=== PATIENT | male | born 1960 | race Caucasian/White ===

== ENCOUNTER 2016-10-08 22:00 | Emergency (ER) | payer MEDICARE, MEDICAID ==
[~2016-10-08] VITALS: Ht 172.7 cm; Wt 108.9 kg
[~2016-10-08 22:00] MED LIST: CLIN1CAP4 PO; ESOM40CA39; FURO40TA PO; LEVO25TA6; SIMBALTA
[2016-10-08 22:33] LABS: Urine RBC None Seen /hpf (0 - 3)
[2016-10-08 22:35] LABS: Basophils # (auto) 0 uL; Basophils % (auto) 0.4 % (0.0-2.0); Eosinophils # (auto) 0.3 uL; Eosinophils % (auto) 2.4 % (0.0-7.0); Hematocrit 42.9 % (41.0-53.0); Hemoglobin 14.3 g/dL (13.5-17.5); Lymphocytes # (auto) 3.3 uL; Lymphocytes % (auto) 28.6 % (10.0-50.0); Mean Corpuscular Hemoglobin 30.4 pg (28.0-32.0); Mean Corpuscular Hgb Conc. 33.3 g/dL (32.0-36.0); Mean Corpuscular Volume 91.2 fL (80.0-100.0); Mean Platelet Volume 7.4 fL (7.4-10.4); Monocytes # (auto) 0.9 uL; Monocytes % (auto) 7.4 % (0.0-12.0); Neutrophils # (auto) 7.1 uL; Neutrophils % (auto) 61.2 % (37.0-80.0); Platelet Count (auto) 264 10^3/uL (140-450); Red Cell Distribution Width 13.6 % (11.6-16.0); White Blood Cell 11.6 10^3/uL (4.4-10.8)
[2016-10-08 22:54] LABS: Albumin 2.9 g/dL (3.4-5.0); Calcium 8.6 mg/dL (8.5-10.1); Magnesium 1.8 mg/dL (1.6-2.6); Potassium 4.3 mmol/L (3.5-5.1)
[2016-10-08 22:57] LABS: BUN/Creatinine Ratio 15.7; Bilirubin, Total 0.3 mg/dL (0.2-1.0); Total Protein 7.2 g/dL (6.4-8.2)
[2016-10-08 22:59] LABS: INR 0.99 (0.9-1.15); Prothrombin Time 10.7 sec (9.37-12.3)
[2016-10-08 23:15] LABS: Urine Bilirubin Negative (Negative); Urine Blood Negative /uL (Negative); Urine Color Colorless (Yellow); Urine Nitrite Negative (Negative); Urine Urobilinogen Normal (Negative); Urine pH 5.5 (5.0-8.0)
[2016-10-08 23:16] LABS: Urine Glucose 4+ mg/dL (Normal); Urine Ketone 1+ (Negative)
[2016-10-08] MEDS ORDERED: SODIUM CHLORIDE 0.9% 1,000 ML IVB ONE (23:37)
[2016-10-09 00:09] LABS: Amylase 32 U/L (25-115)
[2016-10-09] MEDS ORDERED: SODIUM CHLORIDE 0.9% 1,000 ML IV ONE (03:00)
[2016-10-09] MEDS ORDERED: InsuLIN REG 1unit/0.01ml Soln (100units/ml) SC ONE (03:00)
[2016-10-09 03:37] VITALS: BP 138/76
== END 2016-10-09 03:38 | disposition home or self-care (01) ==
LOC: ER 22:20
DX: E10.65 Type 1 diabetes mellitus with hyperglycemia (principal); I25.10 Atherosclerotic heart disease of native coronary artery without angina pectoris; J44.9 Chronic obstructive pulmonary disease, unspecified; K21.9 Gastro-esophageal reflux disease without esophagitis; E78.5 Hyperlipidemia, unspecified; I10 Essential (primary) hypertension; I25.2 Old myocardial infarction; Z86.73 Personal history of transient ischemic attack (TIA), and cerebral infarction without residual deficits; Z79.4 Long term (current) use of insulin
CPT/HCPCS: 36415; 36600; 71010; 80053; 81001; 82010; 82150; 82805; 82962; 83036; 83690; 83735; 85025; 85610; 85730; 96360; 96361; 96372; 99285; J1815

== ENCOUNTER 2017-08-19 09:35 | Emergency (ER) | payer MEDICARE, MEDICAID ==
[~2017-08-19] VITALS: Ht 180.3 cm; Wt 108.9 kg
[~2017-08-19 09:35] MED LIST changes: +CLOP75TA41 PO; +DULO1CAP3 PO; +INSUINJ3; +LEVO75TA6 PO; +MOME1SPR2
[2017-08-19 09:52] VITALS: BP 111/77
[2017-08-19] MEDS ORDERED: methylPREDNISolone SOD SUCC 125 MG/2 ML VL IM ONE (12:15)
== END 2017-08-19 12:50 | disposition home or self-care (01) ==
LOC: ER 09:35
DX: J20.9 Acute bronchitis, unspecified (principal); J44.9 Chronic obstructive pulmonary disease, unspecified; E11.9 Type 2 diabetes mellitus without complications; K21.9 Gastro-esophageal reflux disease without esophagitis; E78.5 Hyperlipidemia, unspecified; I10 Essential (primary) hypertension; I25.2 Old myocardial infarction; E07.9 Disorder of thyroid, unspecified; Z86.73 Personal history of transient ischemic attack (TIA), and cerebral infarction without residual deficits; I25.10 Atherosclerotic heart disease of native coronary artery without angina pectoris
CPT/HCPCS: 71046; 96372; 99284; J2930

== ENCOUNTER 2017-10-18 19:31 | Inpatient (IN) | payer MEDICARE, MEDICAID ==
[~2017-10-18] VITALS: Ht 185.4 cm; Wt 99.8 kg
[2017-10-18 20:14] LABS: Basophils # (auto) 0.1 uL; Basophils % (auto) 0.7 % (0.0-2.0); Eosinophils # (auto) 0.3 uL; Eosinophils % (auto) 3.1 % (0.0-7.0); Hematocrit 47.7 % (41.0-53.0); Hemoglobin 16.5 g/dL (13.5-17.5); Lymphocytes % (auto) 44.8 % (10.0-50.0); Mean Corpuscular Hemoglobin 31.3 pg (28.0-32.0); Mean Corpuscular Hgb Conc. 34.5 g/dL (32.0-36.0); Mean Corpuscular Volume 90.7 fL (80.0-100.0); Monocytes # (auto) 0.9 uL; Neutrophils # (auto) 4.9 uL; Neutrophils % (auto) 43.4 % (37.0-80.0); Nucleated Red Blood Cells % 0.2 %; Platelet Count (auto) 239 10^3/uL (140-450); Red Blood Cells 5.27 10^6/uL (4.5-5.90); Red Cell Distribution Width 14.2 % (11.8-14.3); White Blood Cell 11.2 10^3/uL (4.4-10.8)
[2017-10-18 20:30] LABS: INR 0.95 (0.9-1.15); Partial Thromboplastin Time 25.2 sec (22.64-33.71); Prothrombin Time 10.3 sec (9.37-12.3)
[2017-10-18 20:40] LABS: Alanine Aminotransferase 37 U/L (16-61); Albumin 3.2 g/dL (3.4-5.0); Alkaline Phosphatase 106 U/L (45-117); Anion Gap 11 (5-15); Aspartate Aminotransferase 32 U/L (15-37); BUN/Creatinine Ratio 23.3; Bilirubin, Total 0.2 mg/dL (0.2-1.0); Blood Urea Nitrogen 21 mg/dL (7-18); Calcium 8.7 mg/dL (8.5-10.1); Carbon Dioxide 22 mmol/L (21-32); Chloride 107 mmol/L (98-107); GFR African American 113 mL/min; GFR Non-African American 93 mL/min; Glucose 183 mg/dL (74-106); Magnesium 2.2 mg/dL (1.6-2.6); Potassium 3.5 mmol/L (3.5-5.1); Sodium 140 mmol/L (136-145); Total Protein 7.9 g/dL (6.4-8.2)
[2017-10-18] MEDS ORDERED: ONDANSETRON HCL 4 MG/2 ML VIAL IV PRN (22:00)
[2017-10-18] MEDS ORDERED: ACETAMINOPHEN 325 MG TAB PO PRN (22:00)
[2017-10-18] MEDS ORDERED: DULoxetine HCL 30 MG CAP PO SCH (22:00)
[2017-10-18] MEDS ORDERED: DEXTROSE (50%) 50ML SYRG IV PRN (22:00)
[2017-10-18] MEDS ORDERED: MORPHINE SULFATE 4 MG/ML SYR/VIAL IV PRN (22:00)
[2017-10-18] MEDS ORDERED: METOPROLOL TARTRATE 25 MG TAB PO SCH (22:00)
[2017-10-18] MEDS ORDERED: FAMOTIDINE 20 MG TAB PO SCH (22:00)
[2017-10-18] MEDS ORDERED: TEMAZEPAM 15 MG CAP PO PRN (22:00)
[2017-10-18] MEDS ORDERED: NITROGLYCERIN 0.4 MG SL TAB SL PRN (22:00)
[2017-10-18] MEDS ORDERED: GABA300C10 PO (22:35)
[2017-10-18] MEDS ORDERED: GABAPENTIN 400 MG CAP PO ONE (22:45)
[2017-10-18 23:00] VITALS: BP 123/84
[2017-10-19] MEDS: ACCU-CHEK COMFORT CURVE STRIP VI SCH ×2 (00:21→06:19)
[2017-10-19] MEDS ORDERED: MONT10TA34 PO (01:18)
[2017-10-19 05:46] LABS: Basophils # (auto) 0.1 uL; Basophils % (auto) 0.5 % (0.0-2.0); Eosinophils # (auto) 0.3 uL; Eosinophils % (auto) 3.2 % (0.0-7.0); Hemoglobin 15.9 g/dL (13.5-17.5); Lymphocytes # (auto) 4.6 uL; Lymphocytes % (auto) 45.8 % (10.0-50.0); Mean Corpuscular Hemoglobin 31.3 pg (28.0-32.0); Mean Corpuscular Hgb Conc. 34.6 g/dL (32.0-36.0); Mean Corpuscular Volume 90.4 fL (80.0-100.0); Monocytes # (auto) 0.9 uL; Neutrophils # (auto) 4.2 uL; Neutrophils % (auto) 41.5 % (37.0-80.0); Nucleated Red Blood Cells % 0.1 %; Platelet Count (auto) 236 10^3/uL (140-450); Red Blood Cells 5.09 10^6/uL (4.5-5.90); Red Cell Distribution Width 14.3 % (11.8-14.3); White Blood Cell 10.1 10^3/uL (4.4-10.8)
[2017-10-19 05:58] VITALS: BP 91/66
[2017-10-19] MEDS: InsuLIN REG 1unit/0.01ml Soln (100units/ml) SC SCH ×2 (06:00)
[2017-10-19 06:02] LABS: Albumin 2.9 g/dL (3.4-5.0); BUN/Creatinine Ratio 26.7; Bilirubin, Total 0.2 mg/dL (0.2-1.0); Calcium 8.7 mg/dL (8.5-10.1); Potassium 3.9 mmol/L (3.5-5.1); Total Protein 7.1 g/dL (6.4-8.2)
[2017-10-19] MEDS ORDERED: LEVOTHYROXINE SODIUM 25 MCG TAB PO SCH (07:00)
[2017-10-19 08:23] VITALS: BP 111/76
[2017-10-19] MEDS ORDERED: ENOXAPARIN SOD 40 MG/0.4 ML SYRINGE SC SCH (10:00)
[2017-10-19] MEDS ORDERED: FUROSEMIDE 40 MG TAB PO SCH (10:00)
[2017-10-19 11:29] VITALS: BP 111/76
[2017-10-19 12:30] VITALS: BP 122/75
== END 2017-10-19 12:00 | disposition home or self-care (01) | DRG 206 ==
LOC: EDBD 19:31 → ER 19:31 → EDSEX 19:31 → TELE 19:32 → TELE-CENTR 23:01
PROVIDERS: ADMIT Nurse Practitioner; ATTEND Internal Medicine
DX: M94.0 Chondrocostal junction syndrome [Tietze] (principal); I11.0 Hypertensive heart disease with heart failure; E44.1 Mild protein-calorie malnutrition; J84.10 Pulmonary fibrosis, unspecified; I50.9 Heart failure, unspecified; I25.10 Atherosclerotic heart disease of native coronary artery without angina pectoris; E78.5 Hyperlipidemia, unspecified; E10.9 Type 1 diabetes mellitus without complications; E03.9 Hypothyroidism, unspecified; J44.9 Chronic obstructive pulmonary disease, unspecified; K21.9 Gastro-esophageal reflux disease without esophagitis; Z82.49 Family history of ischemic heart disease and other diseases of the circulatory system; Z68.29 Body mass index [BMI] 29.0-29.9, adult; I25.2 Old myocardial infarction; Z86.73 Personal history of transient ischemic attack (TIA), and cerebral infarction without residual deficits; Z83.3 Family history of diabetes mellitus; Z95.1 Presence of aortocoronary bypass graft; Z88.6 Allergy status to analgesic agent; Z88.1 Allergy status to other antibiotic agents; Z88.5 Allergy status to narcotic agent; Z88.8 Allergy status to other drugs, medicaments and biological substances
CPT/HCPCS: 36415; 71046; 80053; 82962; 83735; 83880; 84443; 84484; 85025; 85379; 85610; 85730; 93005; 94761

== ENCOUNTER 2018-03-27 16:57 | Observation (INO) | payer MEDICARE, MEDICAID ==
[~2018-03-27] VITALS: Ht 180.3 cm; Wt 108.9 kg
[~2018-03-27 16:57] MED LIST changes: -CLIN1CAP4 PO; +GABA300C10 PO; +MONT10TA34 PO
[2018-03-27] MEDS ORDERED: MORPHINE SULFATE 4 MG/ML SYR/VIAL IV ONE ×2 (19:30→20:45)
[2018-03-27] MEDS ORDERED: ONDANSETRON HCL 4 MG/2 ML VIAL IV ONE (19:30)
[2018-03-27 19:54] LABS: Basophils # (auto) 0.1 uL; Basophils % (auto) 0.6 % (0.0-2.0); Eosinophils # (auto) 0 uL; Eosinophils % (auto) 0.2 % (0.0-7.0); Hematocrit 44.8 % (41.0-53.0); Hemoglobin 15.4 g/dL (13.5-17.5); Lymphocytes # (auto) 3.5 uL; Lymphocytes % (auto) 19.9 % (10.0-50.0); Mean Corpuscular Hemoglobin 31.3 pg (28.0-32.0); Mean Corpuscular Hgb Conc. 34.3 g/dL (32.0-36.0); Mean Corpuscular Volume 91.2 fL (80.0-100.0); Monocytes # (auto) 1.3 uL; Monocytes % (auto) 7.4 % (0.0-12.0); Neutrophils # (auto) 12.6 uL; Neutrophils % (auto) 71.9 % (37.0-80.0); Platelet Count (auto) 198 10^3/uL (140-450); Red Blood Cells 4.92 10^6/uL (4.5-5.90); Red Cell Distribution Width 14.1 % (11.8-14.3); White Blood Cell 17.5 10^3/uL (4.4-10.8)
[2018-03-27 20:08] LABS: Albumin 2.7 g/dL (3.4-5.0); BUN/Creatinine Ratio 9.6; Calcium 9.4 mg/dL (8.5-10.1); Potassium 3.3 mmol/L (3.5-5.1)
[2018-03-27 20:11] LABS: Bilirubin, Total 0.6 mg/dL (0.2-1.0); Total Protein 8.3 g/dL (6.4-8.2)
[2018-03-27] MEDS ORDERED: CYCLOBENZAPRINE HCL 10 MG TAB PO ONE (20:45)
[2018-03-27] MEDS ORDERED: POTASSIUM CHL 20 Meq TABLET PO ONE (20:45)
[2018-03-27 23:00] VITALS: BP 136/81
== END 2018-03-27 23:25 | disposition home or self-care (01) | DRG 556 ==
LOC: ER 16:57 → EDBD 16:57 → OVERFLOW 16:58 → ER 23:25
PROVIDERS: ADMIT Family Medicine; ATTEND Family Medicine
DX: M25.561 Pain in right knee (principal); J45.909 Unspecified asthma, uncomplicated; I25.10 Atherosclerotic heart disease of native coronary artery without angina pectoris; I10 Essential (primary) hypertension; K21.9 Gastro-esophageal reflux disease without esophagitis; E11.42 Type 2 diabetes mellitus with diabetic polyneuropathy; E78.5 Hyperlipidemia, unspecified; E87.6 Hypokalemia; Z82.49 Family history of ischemic heart disease and other diseases of the circulatory system; Z83.3 Family history of diabetes mellitus
CPT/HCPCS: 36415; 73562; 80053; 82962; 84550; 85025; 93971; 96374; 96375; 96376; 99285; G0378; J2270; J2405

== ENCOUNTER 2019-06-04 18:40 | Emergency (ER) | payer MEDICARE, MEDICAID ==
[~2019-06-04] VITALS: Ht 180.3 cm; Wt 113.4 kg
[~2019-06-04 18:40] MED LIST changes: -DULO1CAP3 PO; +DULO1CAP6 PO; +FURO1TAB31 PO; -FURO40TA PO
[2019-06-04 21:27] LABS: Basophils # (auto) 0.1 uL; Basophils % (auto) 0.7 % (0.0-2.0); Eosinophils # (auto) 0.4 uL; Eosinophils % (auto) 4.2 % (0.0-7.0); Hematocrit 42.5 % (41.0-53.0); Hemoglobin 14.6 g/dL (13.5-17.5); Lymphocytes # (auto) 3.8 uL; Lymphocytes % (auto) 45.3 % (10.0-50.0); Mean Corpuscular Hemoglobin 32.4 pg (28.0-32.0); Mean Corpuscular Hgb Conc. 34.4 g/dL (32.0-36.0); Mean Corpuscular Volume 94.1 fL (80.0-100.0); Monocytes # (auto) 0.9 uL; Monocytes % (auto) 10.3 % (0.0-12.0); Neutrophils # (auto) 3.3 uL; Neutrophils % (auto) 39.5 % (37.0-80.0); Nucleated Red Blood Cells % 0.2 %; Platelet Count (auto) 208 10^3/uL (140-450); Red Blood Cells 4.51 10^6/uL (4.5-5.90); Red Cell Distribution Width 14.8 % (11.8-14.3); White Blood Cell 8.4 10^3/uL (4.4-10.8)
[2019-06-04 21:42] LABS: INR 1.25 (0.9-1.15); Partial Thromboplastin Time 35.9 sec (23.64-32.05)
[2019-06-04 21:44] LABS: Albumin 2.7 g/dL (3.4-5.0); Anion Gap 6 (5-15); Blood Urea Nitrogen 16 mg/dL (7-18); Calcium 9.1 mg/dL (8.5-10.1); Carbon Dioxide 24 mmol/L (21-32); Chloride 109 mmol/L (98-107); Glucose 259 mg/dL (74-106); Potassium 4.2 mmol/L (3.5-5.1); Sodium 139 mmol/L (136-145)
[2019-06-04 21:49] LABS: Alanine Aminotransferase 49 U/L (16-61); Alkaline Phosphatase 86 U/L (45-117); Aspartate Aminotransferase 44 U/L (15-37); BUN/Creatinine Ratio 16.3; Bilirubin, Total 0.2 mg/dL (0.2-1.0); GFR African American 102 mL/min; GFR Non-African American 84 mL/min; Total Protein 7.5 g/dL (6.4-8.2)
[2019-06-04 23:26] LABS: Urine Bacteria NONE SEEN /hpf (None Seen); Urine Blood Negative /uL (Negative); Urine Mucus FEW (None Seen); Urine Specific Gravity 1.025 (1.001-1.035); Urine WBC 1 /hpf (0 - 3)
[2019-06-05] MEDS: methylPREDNISolone SOD SUCC 125 MG/2 ML VL IV ONE (01:54)
[2019-06-05] MEDS: IPRATROPIUM BROM 0.5 MG/2.5ML INH SOL HHN ONE (02:08)
[2019-06-05] MEDS: ALBUTEROL SULF 2.5 MG/0.5ML(0.5%) NEB SOLN HHN ONE (02:08)
[2019-06-05 04:00] VITALS: BP 111/63
== END 2019-06-05 04:32 | disposition home or self-care (01) ==
LOC: ER 18:40
DX: J44.1 Chronic obstructive pulmonary disease with (acute) exacerbation (principal); R60.9 Edema, unspecified; E11.9 Type 2 diabetes mellitus without complications; K21.9 Gastro-esophageal reflux disease without esophagitis; E78.5 Hyperlipidemia, unspecified; I10 Essential (primary) hypertension; M79.661 Pain in right lower leg; I25.2 Old myocardial infarction; Z95.1 Presence of aortocoronary bypass graft
CPT/HCPCS: 36415; 36600; 71046; 80053; 81001; 82805; 83735; 83880; 84484; 85025; 85379; 85610; 85730; 93005; 93971; 94640; 96374; 99284; J2930; J7611; J7644

== ENCOUNTER 2021-08-11 17:44 | Inpatient (IN) | payer MEDICARE, MEDICAID ==
[~2021-08-11] VITALS: Ht 175.3 cm; Wt 117.1 kg
[~2021-08-11 17:44] MED LIST changes: -CLOP75TA41 PO; +CLOP75TA70 PO; +MONT-8 PO; -MONT10TA34 PO
[2021-08-11 23:50] LABS: Albumin 3.2 g/dL (3.4-5.0); BUN/Creatinine Ratio 22.9; Calcium 9.8 mg/dL (8.5-10.1); Potassium 3.9 mmol/L (3.5-5.1)
[2021-08-11 23:53] LABS: Bilirubin, Total 0.3 mg/dL (0.2-1.0); Total Protein 8.1 g/dL (6.4-8.2)
[2021-08-12 00:08] LABS: Basophils # (auto) 0.1 10 ^3/uL (0-0.2); Basophils % (auto) 0.5 % (0.0-2.0); Eosinophils # (auto) 0.3 10 ^3/uL (0-0.8); Eosinophils % (auto) 2.3 % (0.0-7.0); Hematocrit 37.1 % (41.0-53.0); Hemoglobin 12.6 g/dL (13.5-17.5); Lymphocytes # (auto) 4.1 10 ^3/uL (0.4-5.4); Lymphocytes % (auto) 31.1 % (10.0-50.0); Mean Corpuscular Hemoglobin 31.4 pg (28.0-32.0); Mean Corpuscular Volume 92.5 fL (80.0-100.0); Monocytes # (auto) 1.4 10 ^3/uL (0-1.3); Monocytes % (auto) 10.9 % (0.0-12.0); Neutrophils # (auto) 7.3 10 ^3/uL (1.6-8.6); Neutrophils % (auto) 55.2 % (37.0-80.0); Red Blood Cells 4.01 10^6/uL (4.5-5.90); Red Cell Distribution Width 14.4 % (11.8-14.3); White Blood Cell 13.3 10^3/uL (4.4-10.8)
[2021-08-12] MEDS ORDERED: SODIUM CHLORIDE 0.9% 1,000 ML IV ONE (00:15)
[2021-08-12 01:51] LABS: Basophils # (auto) 0.1 10 ^3/uL (0-0.2); Basophils % (auto) 0.4 % (0.0-2.0); Eosinophils # (auto) 0.3 10 ^3/uL (0-0.8); Eosinophils % (auto) 1.7 % (0.0-7.0); Hematocrit 35.8 % (41.0-53.0); Hemoglobin 12.9 g/dL (13.5-17.5); Lymphocytes # (auto) 6.7 10 ^3/uL (0.4-5.4); Lymphocytes % (auto) 41.2 % (10.0-50.0); Mean Corpuscular Hemoglobin 33.4 pg (28.0-32.0); Mean Corpuscular Volume 92.6 fL (80.0-100.0); Monocytes # (auto) 1.5 10 ^3/uL (0-1.3); Monocytes % (auto) 9.2 % (0.0-12.0); Neutrophils # (auto) 7.7 10 ^3/uL (1.6-8.6); Neutrophils % (auto) 47.5 % (37.0-80.0); Red Blood Cells 3.87 10^6/uL (4.5-5.90); Red Cell Distribution Width 14.4 % (11.8-14.3); White Blood Cell 16.3 10^3/uL (4.4-10.8)
[2021-08-12 02:00] LABS: Albumin 3.3 g/dL (3.4-5.0); BUN/Creatinine Ratio 23.1; Calcium 9.9 mg/dL (8.5-10.1); Magnesium 2.5 mg/dL (1.6-2.6); Potassium 3.9 mmol/L (3.5-5.1)
[2021-08-12 02:12] LABS: Bilirubin, Total 0.3 mg/dL (0.2-1.0); Total Protein 8.2 g/dL (6.4-8.2)
[2021-08-12 04:04] LABS: Urine Bacteria NONE SEEN /hpf (None Seen); Urine Blood Negative /uL (Negative); Urine Hyaline Cast FEW /lpf (0 - 2); Urine Specific Gravity 1.012 (1.001-1.035); Urine WBC <1 /hpf (0 - 3)
[2021-08-12 04:11] LABS: Alcohol, Urine < 3.0 mg/dL (0-10); Amphetamine Screen, Urine NEGATIVE (NEGATIVE); Benzodiazephine Screen, Urine NEGATIVE (NEGATIVE); Cannabinoid Screen, Urine NEGATIVE (NEGATIVE); Cocaine Screen, Urine NEGATIVE (NEGATIVE); Opiate Scree,Urine NEGATIVE (NEGATIVE); Phencyclidine Screen, Urine NEGATIVE (NEGATIVE)
[2021-08-12 04:20] LABS: Barbiturate Scree,Urine NEGATIVE (NEGATIVE)
[2021-08-12] MEDS ORDERED: TEMAZEPAM 15 MG CAP PO PRN (05:45)
[2021-08-12] MEDS ORDERED: MORPHINE SULFATE 4 MG/ML SYR/VIAL IV PRN (05:45)
[2021-08-12] MEDS ORDERED: HYDROcodone-ACET 5/325MG TAB PO PRN (05:45)
[2021-08-12] MEDS ORDERED: DEXTROSE (50%) 50ML SYRG IV PRN (05:45)
[2021-08-12] MEDS ORDERED: ACETAMINOPHEN 325 MG TAB PO PRN (05:45)
[2021-08-12] MEDS ORDERED: NITROGLYCERIN 0.4 MG SL TAB SL PRN (05:45)
[2021-08-12] MEDS ORDERED: MORPHINE SULFATE INJECTION 2 MG/ML SYRG IV PRN (05:45)
[2021-08-12] MEDS ORDERED: ONDANSETRON HCL 4 MG/2 ML VIAL IV PRN (05:45)
[2021-08-12] MEDS: cefTRIAXone 1GM/50ML D5W 50 ML IV SCH ×2 (06:18→07:29)
[2021-08-12] MEDS ORDERED: EPINEPHrine HCL 1 MG/1 ML AMP ONE (06:36)
[2021-08-12] MEDS ORDERED: diphenhdrAMINE HCL 50 MG/1 ML VL ONE (06:40)
[2021-08-12] MEDS ORDERED: methylPREDNISolone SOD SUCC 125 MG/2 ML VL ONE (06:40)
[2021-08-12] MEDS ORDERED: EPINEPHrine HCL 1 MG/1 ML AMP IM ONE (06:45)
[2021-08-12 06:54] LABS: Lactic Acid w/Reflex 2.1 mmol/L (0.4-2.0)
[2021-08-12] MEDS ORDERED: FAMOTIDINE (10MG/ML) 2ML VL IV ONE (07:00)
[2021-08-12] MEDS ORDERED: methylPREDNISolone SOD SUCC 125 MG/2 ML VL IV ONE (07:00)
[2021-08-12] MEDS ORDERED: diphenhdrAMINE HCL 50 MG/1 ML VL IV ONE (07:00)
[2021-08-12] MEDS: ACCU-CHEK COMFORT CURVE STRIP VI SCH ×4 (07:24→22:09)
[2021-08-12] MEDS: InsuLIN REG 1unit/0.01ml Soln (100units/ml) SC SCH ×4 (07:24→22:00)
[2021-08-12] MEDS: LEVOTHYROXINE SODIUM 25 MCG TAB PO SCH (07:28)
[2021-08-12] MEDS ORDERED: TORS100T12 PO ×2 (10:04→10:09)
[2021-08-12] MEDS ORDERED: DULO1CAP6 PO (10:04)
[2021-08-12] MEDS ORDERED: ESOM40CA39 PO (10:09)
[2021-08-12] MEDS ORDERED: INSUINJ3 SC ×2 (10:09→10:15)
[2021-08-12] MEDS ORDERED: LEVO100C3 PO (10:15)
[2021-08-12] MEDS ORDERED: BUPR150T8 PO (10:15)
[2021-08-12] MEDS ORDERED: EVOL140I2 SC ×2 (10:15→10:22)
[2021-08-12] MEDS ORDERED: RIV20T PO (10:15)
[2021-08-12] MEDS ORDERED: OMEG100078 PO (10:23)
[2021-08-12] MEDS ORDERED: INSUINJ37 SC (10:23)
[2021-08-12] MEDS ORDERED: ASCO500T11 PO (10:23)
[2021-08-12] MEDS ORDERED: SPIR25TA8 PO (10:23)
[2021-08-12] MEDS ORDERED: MET25T PO (10:23)
[2021-08-12] MEDS ORDERED: LINA290C PO (10:23)
[2021-08-12] MEDS ORDERED: INSLISPI SC (10:23)
[2021-08-12] MEDS ORDERED: BENA10TA15 PO (10:23)
[2021-08-12] MEDS ORDERED: DULO1CAP5 PO (10:26)
[2021-08-12] MEDS: CLOPIDOGREL BISULFATE 75 MG TAB PO SCH (11:05)
[2021-08-12] MEDS: GABAPENTIN 100 MG CAP PO SCH ×2 (11:06→22:08)
[2021-08-12] MEDS: METOPROLOL TARTRATE 25 MG TAB PO SCH ×2 (11:09→22:08)
[2021-08-12] MEDS: levoFLOXacin 500MG 100 ML IV SCH (11:10)
[2021-08-12] MEDS: FUROSEMIDE 40 MG TAB PO SCH (11:11)
[2021-08-12] MEDS: PANTOPRAZOLE 40 MG TAB PO SCH (11:12)
[2021-08-12 13:00] VITALS: BP 116/77
[2021-08-12] MEDS ORDERED: FLUT1INH6 IN (16:25)
[2021-08-12] MEDS ORDERED: GABA100C9 PO (16:25)
[2021-08-12] MEDS ORDERED: CHOL1CAP48 PO (16:25)
[2021-08-12] MEDS ORDERED: DOCU100T15 PO (16:25)
[2021-08-12 16:27] VITALS: BP 127/78
[2021-08-12] MEDS ORDERED: ALBUAER3 IN (16:28)
[2021-08-12 17:08] VITALS: BP 127/77
[2021-08-12] MEDS ORDERED: RIVAROXABAN 15 MG TAB PO SCH (18:00)
[2021-08-12 22:00] VITALS: BP 147/73
[2021-08-12] MEDS ORDERED: DONEPEZIL HYDROCHLORIDE 5 MG TAB PO SCH (22:00)
[2021-08-12] MEDS ORDERED: MONTELUKAST SODIUM 10 MG TAB PO SCH (22:00)
[2021-08-13 03:27] VITALS: BP 147/73
[2021-08-13 05:00] VITALS: BP 124/74
[2021-08-13 05:54] LABS: Basophils # (auto) 0 10 ^3/uL (0-0.2); Basophils % (auto) 0.1 % (0.0-2.0); Eosinophils # (auto) 0 10 ^3/uL (0-0.8); Eosinophils % (auto) 0.1 % (0.0-7.0); Hematocrit 33.6 % (41.0-53.0); Hemoglobin 11.4 g/dL (13.5-17.5); Lymphocytes # (auto) 2.9 10 ^3/uL (0.4-5.4); Mean Corpuscular Hemoglobin 31.6 pg (28.0-32.0); Mean Corpuscular Hgb Conc. 34.1 g/dL (32.0-36.0); Mean Corpuscular Volume 92.7 fL (80.0-100.0); Monocytes # (auto) 1.2 10 ^3/uL (0-1.3); Monocytes % (auto) 7.6 % (0.0-12.0); Neutrophils # (auto) 11.9 10 ^3/uL (1.6-8.6); Neutrophils % (auto) 74.2 % (37.0-80.0); Nucleated Red Blood Cells % 0.1 %; Red Blood Cells 3.62 10^6/uL (4.5-5.90); Red Cell Distribution Width 14.5 % (11.8-14.3)
[2021-08-13 06:15] LABS: Albumin 2.7 g/dL (3.4-5.0); Calcium 9.4 mg/dL (8.5-10.1); Potassium 4.3 mmol/L (3.5-5.1)
[2021-08-13 06:19] LABS: BUN/Creatinine Ratio 21.1; Bilirubin, Total 0.3 mg/dL (0.2-1.0); Total Protein 7.1 g/dL (6.4-8.2)
[2021-08-13] MEDS: LEVOTHYROXINE SODIUM 25 MCG TAB PO SCH (06:39)
[2021-08-13] MEDS: InsuLIN REG 1unit/0.01ml Soln (100units/ml) SC SCH ×2 (06:52→11:30)
[2021-08-13] MEDS: ACCU-CHEK COMFORT CURVE STRIP VI SCH ×2 (06:52→11:30)
[2021-08-13 08:44] VITALS: BP 99/42
[2021-08-13] MEDS: PANTOPRAZOLE 40 MG TAB PO SCH (11:01)
[2021-08-13] MEDS: GABAPENTIN 100 MG CAP PO SCH (11:01)
[2021-08-13] MEDS: FUROSEMIDE 40 MG TAB PO SCH (11:02)
[2021-08-13] MEDS: CLOPIDOGREL BISULFATE 75 MG TAB PO SCH (11:03)
[2021-08-13] MEDS: METOPROLOL TARTRATE 25 MG TAB PO SCH (11:04)
[2021-08-13] MEDS: levoFLOXacin 500MG 100 ML IV SCH (11:08)
[2021-08-13 12:00] VITALS: BP 125/78
[2021-08-13 13:40] VITALS: BP 110/70
== END 2021-08-13 15:06 | disposition home or self-care (01) | DRG 551 ==
LOC: ER 17:44 → EDBD 17:44 → TELE 08-12 05:40 → TELE-WESTW 08-12 08:56
PROVIDERS: ADMIT Nurse Practitioner; ATTEND Family Medicine
PROC: 5A09357 Assistance with Respiratory Ventilation, Less than 24 Consecutive Hours, Continuous Positive Airway Pressure (ICD-10-PCS; principal; 2021-08-12)
DX: M54.41 Lumbago with sciatica, right side (principal); I50.23 Acute on chronic systolic (congestive) heart failure; J18.9 Pneumonia, unspecified organism; I42.9 Cardiomyopathy, unspecified; J84.10 Pulmonary fibrosis, unspecified; E03.9 Hypothyroidism, unspecified; E11.21 Type 2 diabetes mellitus with diabetic nephropathy; E11.40 Type 2 diabetes mellitus with diabetic neuropathy, unspecified; E66.9 Obesity, unspecified; I11.0 Hypertensive heart disease with heart failure; I50.84 End stage heart failure; M54.42 Lumbago with sciatica, left side; K21.9 Gastro-esophageal reflux disease without esophagitis; R70.0 Elevated erythrocyte sedimentation rate; E78.00 Pure hypercholesterolemia, unspecified; E78.5 Hyperlipidemia, unspecified; F03.90 Unspecified dementia, unspecified severity, without behavioral disturbance, psychotic disturbance, mood disturbance, and anxiety; G89.29 Other chronic pain; I25.10 Atherosclerotic heart disease of native coronary artery without angina pectoris; J45.909 Unspecified asthma, uncomplicated; Z20.822 Contact with and (suspected) exposure to COVID-19; Z96.41 Presence of insulin pump (external) (internal); M25.551 Pain in right hip; Z74.01 Bed confinement status; Z76.82 Awaiting organ transplant status; Z79.02 Long term (current) use of antithrombotics/antiplatelets; Z79.4 Long term (current) use of insulin; Z79.82 Long term (current) use of aspirin; Z82.49 Family history of ischemic heart disease and other diseases of the circulatory system; Z83.3 Family history of diabetes mellitus; Z86.73 Personal history of transient ischemic attack (TIA), and cerebral infarction without residual deficits; Z95.1 Presence of aortocoronary bypass graft; Z95.810 Presence of automatic (implantable) cardiac defibrillator; Z88.6 Allergy status to analgesic agent; Z88.8 Allergy status to other drugs, medicaments and biological substances; Z68.38 Body mass index [BMI] 38.0-38.9, adult
CPT/HCPCS: 36415; 71045; 73700; 74176; 80053; 80307; 81001; 82140; 82550; 82962; 83605; 83735; 84550; 85025; 85652; 87040; 87426; 93005; 93306; 93970; 94660; 96374; 96375; A4618; G0378; J0171; J0696; J1815; J1956; J3490